=== PATIENT | female | born 1960 | race Caucasian/White ===

== ENCOUNTER → 2017-08-19 | Outpatient (CLI) | payer OTHER ==
[~2017-08-19] MED LIST: BIOT25005 PO; CEFD300C37 PO; ESTR0.5G PO; ESTR10TA PO; ESTRADIOL VG; LEVO137T3 PO; LEVO88TA6 PO; LIDOCAINE PATCH TD; MVT PO; PROGEST VG; TRAM50TA2 PO; WOMENS PO; ZOLP5TAB6 PO; [UNRECOGNIZED DRUG - OTHER] PO
== END | disposition home or self-care (01) ==
LOC: RAD 08:45
PROVIDERS: ATTEND Physical Medicine & Rehabilitation
DX: M51.24 Other intervertebral disc displacement, thoracic region (principal); M51.34 Other intervertebral disc degeneration, thoracic region; M47.894 Other spondylosis, thoracic region; M51.36 Other intervertebral disc degeneration, lumbar region; M47.896 Other spondylosis, lumbar region; Z98.890 Other specified postprocedural states
CPT/HCPCS: 72146; 72148